=== PATIENT | female | born 2000 | race Caucasian/White ===

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

== ENCOUNTER 2019-02-14 15:29 | Emergency (ER) | payer OTHER ==
[2019-02-14 15:41] VITALS: BP 124/72
--- NOTE | 2019-02-14 16:15 | UC ---
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 - History of Current Complaint Chief Complaint: UCLowerExtremity Stated Complaint: R LEG INJURY Time Seen by Provider: 02/14/19 16:07 Hx Obtained From: Patient Hx Last Menstrual Period: iud Onset/Duration: Sudden Onset Severity Initially: Moderate Severity Currently: Moderate Pain Intensity: 7 Pain Scale Used: 0-10 Numeric Aggravating Factor(s): Standing, Ambulation Alleviating Factor(s): Rest, Elevation, Ice, OTC Meds Able to Bear Weight: No Legs: 1 - pain and swelling 2 - pain, no effusion - Allergies/Home Medications Allergies/Adverse Reactions: Allergies Allergy/AdvReac Type Severity Reaction Status Date / Time No Known Allergies Allergy Verified 02/14/19 15:41 PMH/Surg Hx/FS Hx/Imm Hx Previously Healthy: Yes Other History Of: Negative For: Anticoagulant Therapy - Surgical History Surgical History: Yes Surgery Procedure, Year, and Place: cholecystectomy, WISDOM TEETH - Family History Known Family History: Positive: Hypertension, Diabetes Negative: Cardiac Disease - Social History Alcohol Use: Rare Substance Use Type: Marijuana Substance Use Comment - Amount & Last Used: 2 times a month Smoking Status (MU): Never Smoked Tobacco Have You Smoked in the Last Year: No - Immunization History Most Recent Influenza Vaccination: 12/03 Vaccination Up to Date: Yes Review of Systems All Other Systems Reviewed And Are Negative: Yes Constitutional: Positive: Negative Skin: Positive: Negative Eyes: Positive: Negative ENT: Positive: Negative Respiratory: Positive: Negative Cardiovascular: Positive: Negative Gastrointestinal: Positive: Negative Genitourinary: Positive: Negative Motor: Positive: Negative Neurovascular: Positive: Negative Musculoskeletal: Positive: Arthralgia Neurological: Positive: Negative Psychological: Positive: Negative Physical Exam Triage Information Reviewed: Yes Appearance: Well-Appearing, No Pain Distress, Well-Nourished Vital Signs: Initial Vital Signs Temp 98.6 F 02/14/19 15:36 Pulse 87 02/14/19 15:36 Resp 18 02/14/19 15:36 BP 124/72 02/14/19 15:36 Pulse Ox 100 02/14/19 15:36 Vital Signs Reviewed: Yes Eyes: Positive: Conjunctiva Clear ENT: Positive: Hearing grossly normal. Negative: Nasal congestion, Nasal drainage, Tonsillar exudate, Trismus, Muffled voice, Hoarse voice Dental Exam: Normal Neck: Positive: Supple, Nontender Respiratory: Positive: Lungs clear, Normal breath sounds, No respiratory distress, No accessory muscle use Cardiovascular: Positive: RRR, No Murmur Bowel Sounds: Positive: Present Musculoskeletal: Positive: Other: - see image, gait not tested Neurological: Positive: Alert Psychological Exam: Normal Skin Exam: Normal - no broken skin or ecchymosis Diagnostics - Radiology No standard instances Radiology Interpretation Completed By: Radiologist Summary of Radiographic Findings: no fx right ankle or knee Lower Extremity Course/Dx - Differential Dx/Diagnosis Provider Diagnosis: Right ankle sprain, Right knee sprain Discharge - Sign-Out/Discharge Documenting (check all that apply): Patient Departure All imaging exams completed and their final reports reviewed: Yes - Discharge Plan Condition: Stable Disposition: HOME Patient Education Materials: Ankle Sprain (ED), Knee Sprain (ED), Crutch Instructions (ED), R.I.C.E. Treatment (ED) Forms: *Work Release Referrals: Greg Caldera NP [Primary Care Provider] - 1 Week (recheck in 1-2 weeks if not better) - Billing Disposition and Condition Condition: STABLE Disposition: Home
== END 2019-02-14 17:00 | disposition home or self-care (01) ==
LOC: UCEAST 15:29
DX: S93.401A Sprain of unspecified ligament of right ankle, initial encounter (principal); S83.91XA Sprain of unspecified site of right knee, initial encounter; W17.89XA Other fall from one level to another, initial encounter; Y92.9 Unspecified place or not applicable
CPT/HCPCS: 99213; G0463

== ENCOUNTER 2019-05-27 12:51 | Emergency (ER) | payer OTHER ==
--- OUTSIDE RECORDS SUMMARY | 2019-05-27 13:10 | XMS REPORT | Continuity of Care Document ---
:2000 External Reference #:[id number] Author Name Hue GusmanP.N.P Address [address] [facility] [address] [place] [address] Care Team Providers Name Role Phone Greg Caldera CPNP Care Team Information Ceo Na Unavailable Yoli Almanza M.D. - Sports Medicine Care Team Information Ceo Na [phone] Emmie Garber M.D. - Allergy & Care Team Information Ceo Na Immunology Problems Description No Active Problems Social History Type Date Description Comments Sex Unknown Tobacco Use Start: Unknown Patient has never smoked Smoking Status Reviewed: 04/13/19 Patient has never smoked Allergies, Adverse Reactions, Alerts Active Allergies Reaction Severity Comments Date NKDA 06/05/2008 [facility] 12/08/2018 Medications Active Medications SIG Qnty Indications Ordering Date Provider Epipen 2-Srinivasan inject intramuscularly 4units Z91.018 Greg 12/08/2018 as needed for Sharkness, 0.3mg/0.3ML anaphylactic reaction C.P.N.P Solution Auto-Inject Fexofenadine HCL 1 by mouth every day 30tabs J30.9 Greg 12/08/2018 as needed for Sharkness, 180mg Tablets allergies C.P.N.P Mometasone Furoate 2 sprays in each 17gm J30.9 Greg 12/08/2018 nostril daily Sharkness, 50mcg/Act C.P.N.P Suspension Zaditor 1 drop to each eye 10ml Greg 12/08/2018 0.025% twice daily as needed Sharkness, Solution for allergies C.P.N.P Hydroxyzine HCL 1 tablet by mouth 30tabs F41.9 Greg 10/24/2018 every 6 to 8 hours as Sharkness, 25mg Tablets needed for anxiety or C.P.N.P insomnia Vitamin D 1 by mouth once daily 30caps Greg 01/19/2018 (Cholecalciferol) Werner, C.P.N.P 1000Unit Capsules Mirena (52 MG) Unknown 20mcg/24HR IUD History Medications Cipro 1 po bid x 7 14tabs Alta Fernández, 04/03/2019 - 250mg Tablets days C.P.N.P. 04/10/2019 Cefdinir 1 capsule by 14caps N39.0 Greg Caldera, 03/22/2019 - 300mg Capsules mouth twice C.P.N.P 03/29/2019 daily for 7 days Escitalopram Oxalate 1 tablet by 30tabs F41.9 Greg Caldera, 2018 - mouth once daily C.P.N.P 04/13/2019 10mg Tablets Medications Administered in Office Medication SIG [...] CPT Code Status Date Vaccine Lot # [id number] Given 08/28/2018 Flu Inj Quadrivalent .5ml Preserve Free [id number] 33830 Given 04/28/2018 Meningococcal B Recombinant Protein And Outer [id number] Membrane [Bexsero] 24932 Given 03/23/2018 Meningococcal B Recombinant Protein And Outer [id number] Membrane [Bexsero] 40007 Given 08/24/2016 Flu Inj Quad 6mo+ VFC Only [] [id number] 72499 Given 12/26/2015 Meningococcal A,C,Y,W135 (Menactra) [id number] Preservative Free 70851 Given 06/18/2015 Flu Inj Quadrivalent .5ml Preserve Free [id number] 76648 Given 06/18/2015 Hepatitis A Vaccine Pediatric/Adolescent 2 [id number] Dose Schedule 87617 Given 02/06/2015 Td Vaccine [id number] 30946 Given 12/09/2014 Hepatitis A Vaccine Pediatric/Adolescent 2 [id number] Dose Schedule 01925 Given 09/12/2012 HPV 4 Gardasil 4 [id number] 60678 Given 09/12/2012 Flu Vacc Preserv Free Trivalent 3+yrs [id number] 37433 Given 07/08/2011 Flu Vacc Preserv Free Trivalent 3+yrs 42604 Given 07/08/2011 Flu Vacc Preserv Free Trivalent 3+yrs [id number] 55526 Given 07/08/2011 HPV 4 Gardasil 4 [id number] 84128 Given 06/29/2010 Meningococcal A,C,Y,W135 (Menactra) [id number] Preservative Free 36815 Given 06/29/2010 Flu Vacc Preserv Free Trivalent 3+yrs [id number] 85254 Given 06/29/2010 HPV 4 Gardasil 4 [id number] 28761 Given 06/12/2009 Flu Vacc Nasal Mist Trivalent (FluMist) [id number] 93377 Given 06/12/2009 TdaP Immunization Age 7+ [id number] 02683 Given 06/12/2009 Varicella (Chicken Pox) Immunization [id number] 46633 Given 06/13/2008 Flu Vacc Nasal Mist Trivalent (FluMist) [id number] 79736 Given 07/04/2007 Flu Vaccine Age 3+Years [id number] 81087 Given 05/08/2002 DTaP Immunization under age 7 55778 Given 11/30/2001 Hib/Hep B Combination Vaccine 43751 Given 11/30/2001 DTaP Immunization under age 7 78772 Given 11/30/2001 Pneumococcal 7valent - Prevnar 77833 Given 12/20/2000 Pneumococcal 7valent - Prevnar 68706 Given 07/18/2000 Pneumococcal 7valent - Prevnar 25389 Given 07/18/2000 MMR Virus Immunization 45131 Given 07/18/2000 Poliomyelitis Immunization 11842 Given 07/18/2000 Varicella (Chicken Pox) Immunization 86203 Given 1999 Hib/Hep B Combination Vaccine 88169 Given 1999 DTaP Immunization under age 7 58578 Given 1999 Hib/Hep B Combination Vaccine 38027 Given 1999 Poliomyelitis Immunization 48752 Given 1999 DTaP Immunization under age 7 65701 Given 1999 Hib/Hep B Combination Vaccine 32739 Given 1999 Poliomyelitis Immunization 44778 Given 1999 DTaP Immunization under age 6 Vital Signs Date Vital Result Comment 04/13/2019 9:31am Height 66.25 inches 5'6.25" Height Percentile 78 % Weight 220.00 lb Weight 99.792 kg Weight Percentile >97th Heart Rate 91 /min BP Systolic 119 mmHg BP Diastolic 84 mmHg BMI (Body Mass Index) 35.2 kg/m2 Body Mass Index Percentile 97 % Right ear audiology results 20 db Left ear audiology results 25 db Left Visual Acuity Distance 20/20 Right Visual Acuity Distance 20/20 03/22/2019 12:08pm Weight 220.00 lb Weight 99.792 kg Weight Percentile >97th Results Test Date Facility Test Result H/L Range Note Laboratory test 04/13/2019 In House Lab .Urine dip - <pending> finding (897)- - see nurse note .Urine Culture In House <pending> Laboratory test 04/02/2019 In House Lab .Urine Culture >100kcolonies P finding (607)- - In House Urine Culture And 04/02/2019 [facility] Urine Culture SEE RESULT BELOW 1, [address] [place] [address] [phone] Urine Culture And 03/23/2019 [facility] Urine Culture SEE RESULT BELOW [address] [place] [address] [phone] Laboratory test 03/22/2019 In House Lab .Urine Culture >100k positive finding (607)- - In House [facility] Allergy 12/08/2018 [facility] A pullulans IgE <0.35 kU/L [address] [place] [address] [phone] Aspergillus Fumigatus IgE <0.35 kU/L 5 Botrytis Allergen IgE <0.35 kU/L 6 Rajani albicans Allergen IgE <0.35 kU/L 7 Dermatophagoides pteronyssinus <0.35 kU/L 8 Epicoccum Allergen IgE <0.35 kU/L 9 Fusarium moniliforme Allergen <0.35 kU/L 10 Helminthosporium halodes IgE <0.35 kU/L 11 House Dust/Mendosa Allergen IgE <0.35 kU/L 12 House Dust/[place] Tj IgE <0.35 kU/L 13 Mucor racemosus Allergen IgE <0.35 kU/L 14 Penicillium notatum Allerg IgE <0.35 kU/L 15 Rhizopus nigricans Allerg IgE <0.35 kU/L 16 Stemphyllium IgE Allergen <0.35 kU/L 17 Trichophyton rubrum Allergen <0.35 kU/L 18 Ustilago nuda IgE Allergen <0.35 kU/L 19 Laboratory test 12/08/2018 [facility] [place] Feathers, <0.35 kU/ L [address] [place] [address] [phone] [facility] Allergy 12/08/2018 [facility] Bermuda Grass <0.35 kU/ L [address] [place] [address] [phone] Silver Birch IgE <0.35 kU/L 22 Wolsey Maple IgE <0.35 kU/L 23 Mountain [place] Allergen IgE <0.35 kU/L 24 Cocklebur Allergen IgE <0.35 kU/L 25 Perry Allergen IgE <0.35 kU/L 26 Dandelion Allergen IgE <0.35 kU/L 27 Elm Tree Allergen IgE <0.35 kU/L 28 Lithuanian Plantain Allergen IgE <0.35 kU/L 29 [place] Allergen IgE <0.35 kU/L 30 White Blackduck Tree Allerg IgE <0.35 kU/L 31 [place] Tree Allergen IgE <0.35 kU/L 32 Rough Pigweed Allergen IgE <0.35 kU/L 33 [place] Tree Allergen IgE <0.35 kU/L 34 Giant Ragweed Allergen IgE <0.35 kU/L 35 Snowflake Tree Allergen IgE <0.35 kU/L 36 Enloe Grass Allergen IgE <0.35 kU/L 37 Sheep Elkhorn Allergen IgE <0.35 kU/L 38 White Arsalan Allergen IgE <0.35 kU/L 39 Malaga Tree Allergen IgE <0.35 kU/L 40 Laboratory test 12/08/2018 [facility] Malt Allergen <0.35 kU/L [address] [place] [address] [phone] Rast Cow's Milk <0.35 kU/L 42 Rast Onion <0.35 kU/L 43 Rast Musselshell <0.35 kU/L 44 Rast Rice <0.35 kU/L 45 Rast Soybean <0.35 kU/L 46 Black/White Pepper IgE Allerg <0.35 kU/L 47 Rast Egg White <0.35 kU/L 48 Rast Chicken Feathers <0.35 kU/L 49 Duck Feathers, IgE <0.35 kU/L 50 Rast Chicken Meat <0.35 kU/L 51 Rast Chocolate <0.35 kU/L 52 Rast Coconut <0.35 kU/L 53 Rast Cockroach Allergen Ige <0.35 kU/L 54 Rast Casselberry <0.35 kU/L 55 Rast Cow Dander Ige <0.35 kU/L 56 Rast Egg <0.35 kU/L 57 Rast Garlic <0.35 kU/L 58 Rast Guinea Pig <0.35 kU/L 59 Horse Dander Allergen IgE <0.35 kU/L 60 Rast Tomatoe <0.35 kU/L 61 Rast Wheat <0.35 kU/L 62 Rast Yeast (De Guzman/Nguyễn) <0.35 kU/L 63 Goose Feathers Allergen IgE Ab <0.35 kU/L 64 Cell Morphology 12/08/2018 [facility] Microcytosis 2+ [address] [place] [address] [phone] Hypochromasia 1+ Comp Metabolic 12/08/2018 [facility] Sodium 138 mmol/L Normal 135-[address] [place] [address] [phone] Potassium 4.3 mmol/L Normal 3.5-5.0 Chloride 104 mmol/L Normal 101-111 Co2 Carbon Dioxide 26 mmol/L Normal 22-32 Anion Gap 8 mmol/L Normal 2-11 Glucose 89 mg/dL Normal 70-100 Blood Urea Nitrogen 10 mg/dL Normal 6-24 Creatinine 0.71 mg/dL Normal 0.51-0.95 BUN/Creatinine Ratio 14.1 Normal 8-20 Calcium 9.6 mg/dL Normal 8.6-10.3 Total Protein 7.1 g/dL Normal 6.4-8.9 Albumin 4.3 g/dL Normal 3.2-5.2 Globulin 2.8 g/dL Normal 2-4 Albumin/Globulin Ratio 1.5 Normal 1-3 Total Bilirubin 0.40 mg/dL Normal 0.2-1.0 Alkaline Phosphatase 103 U/L Normal 34-104 Alt 6 U/L Low 7-52 Ast 13 U/L Normal 13-39 Egfr Non- 106.0 >60 Egfr 128.3 >60 65 Laboratory 12/08/2018 [facility] Vitamin D Total 24.9 Normal 20-50 [address] 25(Oh) ng/[place] [address] [phone] Lipid Profile 12/08/2018 [facility] Triglycerides 133 mg/dL 67 (Trig/Chol/HDL DRIVE ) [place] [address] [phone] Cholesterol 158 mg/dL 68 HDL Cholesterol 43.5 mg/dL 69 LDL Cholesterol 88 mg/dL 70 Laboratory test 12/08/2018 [facility] Immunoglobulin E 3.9 kU/L <= 214 71 finding (Ige) [place] [address] [phone] Insulin Level 13.2 mcIU/mL Normal 2.0-16.0 CBC Auto 12/08/2018 [facility] White Blood 10.0 10^3/uL Normal 3.5-10.[address] [place] [address] [phone] Red Blood Count 5.30 10^6/uL High 3.70-4.87 Hemoglobin 12.1 g/dL Normal 12.0-16.0 Hematocrit 37 % Normal 33-41 Mean Corpuscular Volume 71 fL Low 80-97 Mean Corpuscular Hemoglobin 23 pg Low 27-31 Mean Corpuscular HGB Conc 32 g/dL Normal 31-36 Red Cell Distribution Width 18 % High 10.5-15 Platelet Count 294 10^3/uL Normal 150-450 Mean Platelet Volume 9.0 fL Normal 7.4-10.4 Abs Neutrophils 7.5 10^3/uL Normal 1.5-7.7 Abs Lymphocytes 1.5 10^3/uL Normal 1.0-4.8 Abs Monocytes 0.8 10^3/uL Normal 0-0.8 Abs Eosinophils 0.1 10^3/uL Normal 0-0.6 Abs Basophils 0.1 10^3/uL Normal 0-0.2 Abs Nucleated RBC 0 10^3/uL Granulocyte % 75.0 % Lymphocyte % 15.4 % Monocyte % 7.7 % Eosinophil % 1.3 % Basophil % 0.6 % Nucleated Red Blood Cells % 0 Laboratory test 12/08/2018 [facility] Rast Blueberry <0.35 kU/L [address] [place] [address] [phone] Rast Pineapple <0.35 kU/L 73 Rast Melon <0.35 kU/L 74 Rast Rainsburg Ige <0.35 kU/L 75 Rast Sharp <0.35 kU/L 76 Rast Northeast 12/08/2018 [facility] Alternaria tenuis <0.35 kU/ L [address] [place] [address] [phone] Cat Epithelium Allergen IgE <0.35 kU/L 78 Cladosporium herbarum IgE <0.35 kU/L 79 Dermatophagoides farinae IgE <0.35 kU/L 80 Dog Dander Allergen IgE <0.35 kU/L 81 Kentucky Blue (January) Grass IgE <0.35 kU/L 82 Contreras's Quarter Allergen IgE <0.35 kU/L 83 [place] Allergen IgE <0.35 kU/L 84 Common Ragweed () Allerge <0.35 kU/L 85 Frank Grass Allergen IgE <0.35 kU/L 86 1 [id number] 2 SEE RESULT BELOW Name: VIOLETA GERONIMO : [address]: Alta LIM Acct: [id number] Unit: [id number] AGE: 18 Location: [facility] Re04/02/19 SEX: F Status: REG REF SPEC: [id number] TIGIST: 04/02/19-[address] [facility] [address]: Alta LIM REQ: [id number] RECD: 04/03/19 STATUS: COMP _ SOURCE: URINE SPDESC: ORDERED: Urine Culture COMMENTS: [id number] QUERIES: Urine Source: Random Procedure Result Reported Site Urine Culture Final 04/04/19- 0857 ML Organism 1 STAPHYLOCOCCUS SAPROPHYTICUS [place] Count Not Performed on Uricult Specimens CFU/ML Routine sensitivity testing of urine isolates of S. saprophyticus is not advised, because infections respond to concentrations achieved in urine of antimicrobial agents commonly used to treat acute, uncomplicated urinary tract infections (e.g. nitrofurantoin, trimethoprim+/- sulfamethoxazole, or a fluoroquinolone). [facility] August 2001 * ML - [facility] . END OF REPORT DEPARTMENT OF PATHOLOGY, [address] [place] [address] Du Gardiner M.D. Director [facility] # [id number] 3 SEE RESULT BELOW Name: VIOLETA GERONIMO : [address]: Greg Caldera PERSONNEL PSYCHOLOGIST Acct: [id number] Unit: [id number] AGE: 18 Location: [facility] Re03/23/19 SEX: F Status: REG REF SPEC: [id number] TIGIST: 03/23/19-[address]: Greg Caldera PERSONNEL PSYCHOLOGIST REQ: [id number] RECD: 03/23/191610 STATUS: COMP _ SOURCE: URINE [facility]: ORDERED: Urine Culture COMMENTS: [id number] Urine Source: Random Procedure Result Reported Site Urine Culture Final 03/25/19- 1025 ML Organism 1 ESCHERICHIA COLI [place] Count Not Performed on Uricult Specimens CFU/ML 1. ESCHERICHIA COLI M.I.C. RX --------- ------ Ampicillin >=32 R Cefazolin 8 S Cefepime <=1 S Ceftriaxone <=1 S Ciprofloxacin <=0.25 S Gentamicin >=16 R Levofloxacin <=0.12 S Meropenem <=0.25 S Nitrofurantoin <=16 S Tetracycline >=16 R Pipercillin/Tazobactam <=4 S Trimethoprim/Sulfamethoxazole >=320 R Amoxicillin/Clavulanic Acid >=32 R Aztreonam <=1 S Contact the Microbiology Department for any additional antibiotic reporting. * ML - Main Lab . END OF REPORT DEPARTMENT OF PATHOLOGY, [address], [place], [place] [address] Du Gardiner M.D. Director [facility] # [id number] 4 Class 0 (Negative <0.35) 5 Class 0 (Negative <0.35) 6 Class 0 (Negative <0.35) 7 Class 0 (Negative <0.35) 8 Class 0 (Negative <0.35) 9 Class 0 (Negative <0.35) 10 Class 0 (Negative <0.35) 11 Class 0 (Negative <0.35) 12 Class 0 (Negative <0.35) 13 Class 0 (Negative <0.35) Test Performed by: [place] [address] 14 Class 0 (Negative <0.35) 15 Class 0 (Negative <0.35) 16 Class 0 (Negative <0.35) 17 Class 0 (Negative <0.35) 18 Class 0 (Negative <0.35) 19 Class 0 (Negative <0.35) ADDITIONAL INFORMATION This test was developed using an analyte specific reagent. Its performance characteristics were determined by [facility] in a manner consistent with CLIA requirements. This test has not been cleared or approved by the U.S. Food and Drug Administration. 20 Class 0 (Negative <0.35) Test Performed by: [place] [address] 21 Class 0 (Negative <0.35) 22 Class 0 (Negative <0.35) 23 Class 0 (Negative <0.35) 24 Class 0 (Negative <0.35) 25 Class 0 (Negative <0.35) 26 Class 0 (Negative <0.35) 27 Class 0 (Negative <0.35) 28 Class 0 (Negative <0.35) 29 Class 0 (Negative <0.35) 30 Class 0 (Negative <0.35) 31 Class 0 (Negative <0.35) 32 Class 0 (Negative <0.35) 33 Class 0 (Negative <0.35) 34 Class 0 (Negative <0.35) 35 Class 0 (Negative <0.35) 36 Class 0 (Negative <0.35) Test Performed by: [facility] [employer] [facility] [place] [address] 37 Class 0 (Negative <0.35) 38 Class 0 (Negative <0.35) 39 Class 0 (Negative <0.35) 40 Class 0 (Negative <0.35) 41 Class 0 (Negative <0.35) Test Performed by: [facility] [employer] [address] [place] [address] 42 Class 0 (Negative <0.35) Test Performed by: [facility] [employer] [facility] [place] [address] 43 Class 0 (Negative <0.35) Test Performed by: [facility] [employer] [address] [place] [address] 44 Class 0 (Negative <0.35) Test Performed by: [facility] [employer] [address] [place] [address] 45 Class 0 (Negative <0.35) Test Performed by: [place] [address] 46 Class 0 (Negative <0.35) Test Performed by: [facility] [employer] [address] [place] [address] 47 Class 0 (Negative <0.35) Test Performed by: [facility] [employer] [address] [place] [address] 48 Class 0 (Negative <0.35) Test Performed by: [place] [address] 49 Class 0 (Negative <0.35) Test Performed by: [facility] [place] [address] 50 Class 0 (Negative <0.35) Test Performed by: [facility] [employer] [facility] [place] [address] 51 Class 0 (Negative <0.35) Test Performed by: [facility] [employer] [address] [place] [address] 52 Class 0 (Negative <0.35) Test Performed by: [facility] [place] [address] 53 Class 0 (Negative <0.35) Test Performed by: [facility] [employer] [address] [place] [address] 54 Class 0 (Negative <0.35) Test Performed by: [place] [address] 55 Class 0 (Negative <0.35) Test Performed by: [place] [address] 56 Class 0 (Negative <0.35) Test Performed by: [place] [address] 57 Class 0 (Negative <0.35) Test Performed by: [place] [address] 58 Class 0 (Negative <0.35) Test Performed by: [place] [address] 59 Class 0 (Negative <0.35) Test Performed by: [place] [address] 60 Class 0 (Negative <0.35) Test Performed by: [address] [address] 61 Class 0 (Negative <0.35) Test Performed by: [place] [address] 62 Class 0 (Negative <0.35) Test Performed by: [place] [address] 63 Class 0 (Negative <0.35) Test Performed by: [place] [address] 64 Class 0 (Negative <0.35) Test Performed by: [address] [address] 65 Because ethnic data is not always readily [...] 15-29 5 Kidney failure <15 (or dialysis) 66 Total 25-Hydroxyvitamin D2 and D3 (25-OH-VitD) <10 ng/mL (severe deficiency) 10-19 ng/mL (mild to moderate deficiency) 20-50 ng/mL (optimum levels) 51-80 ng/mL (increased risk of hypercalciuria) >80 ng/mL (toxicity possible) 67 Desirable: <150 Borderline High: 150-199 High: 200-499 Very High: >500 68 Desirable: <200 Borderline High: 200-239 High: >239 69 Low: <40 Desirable: 40-60 High: >60 70 Desirable: <100 Near Optimal: 100-129 Borderline High: 130-159 High: 160-189 Very High: >189 71 Test Performed by: [facility] [place] [address] 72 Class 0 (Negative <0.35) ADDITIONAL INFORMATION This test was developed using an analyte specific reagent. Its performance characteristics were determined by [facility] in a manner consistent with CLIA requirements. This test has not been cleared or approved by the U.S. Food and Drug Administration. Test Performed by: [place] [address] 73 Class 0 (Negative <0.35) Test Performed by: [place] [address] 74 Class 0 (Negative <0.35) Test Performed by: [place] [address] 75 Class 0 (Negative <0.35) Test Performed by: [place] [address] 76 Class 0 (Negative <0.35) Test Performed by: [place] [address] 77 Class 0 (Negative <0.35) 78 Class 0 (Negative <0.35) 79 Class 0 (Negative <0.35) 80 Class 0 (Negative <0.35) CORRECTED REPORT --- Corrected on 12/12/18 1522 --- D farinae IgE previously reported as: <0.35 kU/L Class 0 (Negative <0.35) Test Performed by: [facility] [address] [place] [address] 81 Class 0 (Negative <0.35) 82 Class 0 (Negative <0.35) 83 Class 0 (Negative <0.35) 84 Class 0 (Negative <0.35) 85 Class 0 (Negative <0.35) 86 Class 0 (Negative <0.35) Procedures Description No Information Available Medical Devices Description No Information Available Encounters Type Date Location Provider Dx Diagnosis Office Visit 03/22/2019 [facility] Greg Caldera, N39.0 Urinary tract 12:15p C.P.N.P infection, site not specified Office Visit 12/08/2018 [facility] Greg Caldera, T78.40xA Allergy, 9:00a C.P.N.P unspecified, initial encounter J30.9 Allergic rhinitis, unspecified E88.81 Metabolic syndrome F41.9 Anxiety disorder, unspecified Z91.018 Allergy to other foods Office Visit 10/24/2018 8:15a [facility] Greg Caldera, F41.9 Anxiety disorder, C.P.N.P unspecified Assessments Date Code Description Provider 04/13/2019 Z00.00 Encounter for general adult medical Greg Caldera, C.P.N.P examination without abnormal findings 04/13/2019 F41.9 Anxiety disorder, unspecified Greg Caldera, C.P.N.P 04/13/2019 J30.9 Allergic rhinitis, unspecified Greg Caldera, C.P.N.P 04/13/2019 Z91.018 Allergy to other foods Greg Caldera, C.P.N.P 04/02/2019 N39.0 Urinary tract infection, site not Alta Fernández C.P.N.P. specified 03/22/2019 N39.0 Urinary tract infection, site not Greg Caldera, C.P.N.P specified 12/08/2018 T78.40xA Allergy, unspecified, initial encounter Greg Caldera , C.P.N.P 12/08/2018 J30.9 Allergic rhinitis, unspecified Greg Laguerreness, C.P.N.P 12/08/2018 E88.81 Metabolic syndrome Greg Caldera, C.P.N.P 12/08/2018 F41.9 Anxiety disorder, unspecified Greg Caldera, C.P.N.P 12/08/2018 Z91.018 Allergy to other foods Greg Caldera, C.P.N.P 10/24/2018 F41.9 Anxiety disorder, unspecified Greg Caldera, C.P.N.P Plan of Treatment 04/13/2019 - Greg Laguerrenatalia, C.P.N.PZ00.00 Encounter for general adult medical examination without abnormal findingsFollow up:In 1 year for next well gvwwlS18.9 Anxiety disorder, unspecifiedFollow up:As arrmzsG99.9 Allergic rhinitis, wpludxuceoaB63.018 Allergy to other foods Goals 04/13/2019 - Greg Laguerrenatalia, C.P.N.PZ00.00 Encounter for general adult medical examination without abnormal findings*5 servings of fruits/vegetables daily *Adequate vitamin D - 3 servings of fortified dairy daily or add a supplement *Outdoor time or exercise most days Functional Status Description No Information Available Mental Status Description No Information Available Referrals Refer to Reason for Referral Status Appt Date Emmie Garber M.D. seasonal allergies and possible allergy to Sent 03/30 [facility] [address] [place] [id number] [phone]
[2019-05-27 13:25] VITALS: BP 118/69
--- NOTE | 2019-05-27 13:53 | UC ---
Throat Pain/Nasal Neo HPI - HPI Summary HPI Summary: 18-year-old female presents with 4 day history of nasal congestion, sinus pressure, right ear pain, and a dry nonproductive cough. States she had some sore throat at the onset of symptoms but has since resolved. Denies fever, chills, dysphagia, chest pain, shortness of breath, abdominal pain, nausea, or vomiting. - History of Current Complaint Chief Complaint: UCGeneralIllness Stated Complaint: CONGESTED Time Seen by Provider: 05/27/19 13:27 Hx Obtained From: Patient Hx Last Menstrual Period: IUD Pain Intensity: 5 - Allergies/Home Medications Allergies/Adverse Reactions: Allergies Allergy/AdvReac Type Severity Reaction Status Date / Time No Known Allergies Allergy Verified 05/27/19 13:25 Home Medications: Home Medications NK [No Home Medications Reported] 05/27/19 [History Confirmed 05/27/19] PMH/Surg Hx/FS Hx/Imm Hx Previously Healthy: Yes - Denies significant PMH Other History Of: Negative For: Anticoagulant Therapy - Surgical History Surgical History: Yes Surgery Procedure, Year, and Place: cholecystectomy, WISDOM TEETH - Family History Known Family History: Positive: Hypertension, Diabetes - Social History Occupation: Student Lives: Dormitory/Roommates Alcohol Use: Rare Substance Use Type: Marijuana Substance Use Comment - Amount & Last Used: 2 times a month Smoking Status (MU): Never Smoked Tobacco Have You Smoked in the Last Year: No - Immunization History Most Recent Influenza Vaccination: 12/03 Vaccination Up to Date: Yes Review of Systems All Other Systems Reviewed And Are Negative: Yes Constitutional: Negative: Fever, Chills Skin: Negative: Rash Eyes: Negative: Drainage, Eye Redness ENT: Positive: Sore Throat, Ear Ache, Nasal Discharge, Sinus Congestion, Sinus Pain/Tenderness Respiratory: Positive: Cough. Negative: Shortness Of Breath Cardiovascular: Negative: Palpitations, Chest Pain Gastrointestinal: Negative: Abdominal Pain, Vomiting, Nausea Genitourinary: Positive: Negative Musculoskeletal: Positive: Negative Neurological: Positive: Negative Is Patient Immunocompromised?: No Physical Exam - Summary Physical Exam Summary: GENERAL APPEARANCE: Well developed, well nourished, alert and cooperative, and appears to be in no acute distress. EYES: Conjunctiva clear. No drainage. EARS: External auditory canals and tympanic membranes clear, hearing grossly intact. NOSE: Moderate nasal congestion. No nasal discharge. THROAT: Mild pharyngeal erythema with post-nasal drip. No tonsilar inflammation , swelling, exudate, or lesions. Uvula midline. NECK: Neck supple, non-tender without lymphadenopathy. CARDIAC: Normal S1 and S2. No S3, S4 or murmurs. Rhythm is regular. There is no peripheral edema, cyanosis or pallor. Extremities are warm and well perfused. Capillary refill is less than 2 seconds. Peripheral pulses intact. LUNGS: Clear to auscultation without rales, rhonchi, wheezing or diminished breath sounds. Dry non-productive cough. ABDOMEN: Positive bowel sounds. Soft, nondistended, nontender. No guarding or rebound. No masses or hepatosplenomegally. MUSKULOSKELETAL: ROM intact to all extremities. No joint erythema or tenderness. Normal muscular development. Normal gait. SKIN: Skin normal color, texture and turgor with no lesions or eruptions. Triage Information Reviewed: Yes Vital Signs: Initial Vital Signs Temp 97.5 F 05/27/19 13:21 Pulse 78 05/27/19 13:21 Resp 18 05/27/19 13:21 BP 118/69 05/27/19 13:21 Pulse Ox 100 05/27/19 13:21 Vital Signs Reviewed: Yes Throat Pain/Nasal Course/Dx - Course Course Of Treatment: 18-year-old female presents with 4 day history of nasal congestion, sinus pressure, right ear pain, and a dry nonproductive cough. States she had some sore throat at the onset of symptoms but has since resolved. Denies fever, chills, dysphagia, chest pain, shortness of breath, abdominal pain, nausea, or vomiting. Afebrile. Vital signs stable. Patient and moderate nasal congestion , mild pharyngeal erythema with postnasal drip, no tonsillar swelling or exudate , no cervical lymphadenopathy, clear bilateral breath sounds, dry nonproductive cough, and otherwise unremarkable exam. Recommending symptomatic treatment for a viral upper respiratory infection. She is to follow-up with her primary care provider in 5-7 days if symptoms are not improving. Anticipatory guidance and warning signs are reviewed with the patient. Verbalizes understanding and agrees with plan of care. - Differential Dx/Diagnosis Differential Diagnosis/HQI/PQRI: Influenza, Pharyngitis, Sinusitis, Tonsillitis , URI Provider Diagnosis: Viral upper respiratory infection Discharge ED - Sign-Out/Discharge Documenting (check all that apply): Patient Departure All imaging exams completed and their final reports reviewed: No Studies - Discharge Plan Condition: Stable Disposition: HOME Patient Education Materials: Upper Respiratory Infection (ED) Referrals: Greg Caldera, YOUTH MINISTRY DIRECTOR [Primary Care Provider] - 5 Days Additional Instructions: Your history and exam are consistent with a viral upper respiratory infection. Viral infections do not respond to antibiotics and are limited to the treatment of symptoms. Viral infections typically run their course in 7-10 days. Drink plenty of fluids to avoid dehydration especially if you are running any fever. Use a saline rinse kit such as Neti Pot or NeilMed at least twice a day to help thin secretions and promote drainage of the sinuses. Use fluticasone (Flonase) nasal spray 2 sprays each nostril once daily. Use an over the counter decongestant such as Sudafed according to directions to help with the congestion. Take over the counter acetaminophen (Tylenol) or ibuprofen (Advil, Motrin) according to directions as needed for pain or fever. Use salt water gargles several times a day if you have a sore throat. You may also use Chloraseptic spray or Cepacol lonzenges according to directions which contain a numbing medication and can provide some temporary relief from your sore throat. Follow up with your primary care provider in 5-7 days if symptoms persist. Seek immediate medical attention in the emergency room if you have fever greater than 100.5 F despite taking acetaminophen or ibuprofen, have chest pain , difficulty breathing, are unable to swallow, or have any worsening of symptoms. - Billing Disposition and Condition Condition: STABLE Disposition: Home
== END 2019-05-27 14:09 | disposition home or self-care (01) ==
LOC: UCEAST 12:51
DX: J06.9 Acute upper respiratory infection, unspecified (principal); H92.01 Otalgia, right ear
CPT/HCPCS: 99211; G0463

== ENCOUNTER 2019-06-05 18:37 | Emergency (ER) | payer OTHER ==
[2019-06-05 19:02] VITALS: BP 127/72
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
== END 2019-06-05 19:30 | disposition home or self-care (01) ==
LOC: UCCORT 18:37
DX: S40.011A Contusion of right shoulder, initial encounter (principal); X58.XXXA Exposure to other specified factors, initial encounter; Y92.9 Unspecified place or not applicable
CPT/HCPCS: 99211; G0463

== ENCOUNTER 2019-06-19 11:49 | Emergency (ER) | payer OTHER ==
[2019-06-19 12:25] VITALS: BP 131/78
--- NOTE | 2019-06-19 12:36 | UC ---
Throat Pain/Nasal Neo HPI - HPI Summary HPI Summary: Patient is a 19-year-old female presenting with nasal congestion, sore throat, productive cough, shortness of breath on exertion, body aches, and fatigue 3 days. Notes intermittent wheezing and constant feeling of chest tightness. Denies ear pain and sinus tenderness. Denies nausea, vomiting, diarrhea, abdominal pain. Patient denies fever and chills. Patient states she has taken Mucinex for symptom relief. Patient has history of exercise-induced asthma. - History of Current Complaint Stated Complaint: CONGESTION SORE THROAT Hx Obtained From: Patient Hx Last Menstrual Period: IUD Onset/Duration: Gradual Onset, Lasting Days Pain Intensity: 7 Pain Scale Used: 0-10 Numeric - Allergies/Home Medications Allergies/Adverse Reactions: Allergies Allergy/AdvReac Type Severity Reaction Status Date / Time No Known Allergies Allergy Verified 06/19/19 12:17 PMH/Surg Hx/FS Hx/Imm Hx Previously Healthy: Yes Other History Of: Negative For: Anticoagulant Therapy - Surgical History Surgical History: Yes Surgery Procedure, Year, and Place: cholecystectomy, WISDOM TEETH - Family History Known Family History: Positive: Hypertension, Diabetes - Social History Alcohol Use: Rare Substance Use Type: Marijuana Substance Use Comment - Amount & Last Used: 2 times a month Smoking Status (MU): Never Smoked Tobacco Have You Smoked in the Last Year: No - Immunization History Most Recent Influenza Vaccination: 12/03 Vaccination Up to Date: Yes Review of Systems All Other Systems Reviewed And Are Negative: Yes Constitutional: Positive: Negative. Negative: Fever, Chills, Fatigue ENT: Positive: Sore Throat, Sinus Congestion. Negative: Ear Ache, Nasal Discharge, Sinus Pain/Tenderness Respiratory: Positive: Shortness Of Breath, Cough Cardiovascular: Positive: Negative. Negative: Palpitations, Chest Pain Gastrointestinal: Positive: Negative. Negative: Abdominal Pain, Vomiting, Diarrhea, Nausea Musculoskeletal: Positive: Myalgia Neurological: Positive: Headache Physical Exam Triage Information Reviewed: Yes Appearance: Well-Appearing, No Pain Distress, Well-Nourished Vital Signs: Initial Vital Signs Temp 97.9 F 06/19/19 12:18 Pulse 82 06/19/19 12:18 Resp 20 06/19/19 12:18 BP 131/78 06/19/19 12:18 Pulse Ox 100 06/19/19 12:18 Lab Results 10/29/19 Range/Units 12:49 Group A Strep Rapid Negative (Negative) Vital Signs Reviewed: Yes Eyes: Positive: Conjunctiva Clear ENT: Positive: Hearing grossly normal, Pharyngeal erythema, Nasal congestion, Nasal drainage - PND, TMs normal, Tonsillar swelling, Uvula midline. Negative: Tonsillar exudate, Sinus tenderness Neck: Positive: Supple, Tenderness @ - Left anterior cervical node, Enlarged Nodes @ - Left anterior cervical node Respiratory Exam: Normal Respiratory: Positive: Lungs clear, Normal breath sounds, No respiratory distress. Negative: Crackles, Rhonchi, Stridor, Wheezing Cardiovascular Exam: Normal Cardiovascular: Positive: RRR. Negative: Tachycardia Neurological: Positive: Alert Psychological: Positive: Age Appropriate Behavior Throat Pain/Nasal Course/Dx - Course Course Of Treatment: Educated patient on URI symptoms and acute bronchitis. Instructed to continue with symptomatic treatment including use of albuterol inhaler for shortness breath and wheezing. Instructed to follow up with PCP if symptoms persist or go to ED if symptoms worsen. Patient's vital signs normal and in no respiratory distress. Patient voiced understanding and agreed with the treatment plan. - Differential Dx/Diagnosis Provider Diagnosis: Upper respiratory infection, acute, Acute bronchitis Discharge ED - Sign-Out/Discharge Documenting (check all that apply): Patient Departure All imaging exams completed and their final reports reviewed: No Studies - Discharge Plan Condition: Stable Disposition: HOME Prescriptions: Albuterol HFA INHALER* [Ventolin HFA Inhaler*] 1 - 2 puff INH Q6H PRN #1 mdi PRN Reason: Sob/Wheezing Patient Education Materials: Acute Bronchitis (ED) Forms: *School Release Referrals: Greg Caldera, WOOD MODEL MAKER [Primary Care Provider] - If Needed Additional Instructions: As discussed, your symptoms are most likely caused by a virus. You may continue to take mucinex as directed to help reduce your mucus production. Use the albuterol inhaler as prescribed for your shortness of breath. You may use your over the counter nasal spray as directed for symptomatic relief. You may take ibuprofen as directed for pain relief. Get plenty of rest and fluids. Follow up with your primary care doctor or the [facility] listed below if your symptoms worsen or do not resolve within 7 days. - Billing Disposition and Condition Condition: STABLE Disposition: Home - Attestation Statements Provider Attestation: I was available for consult. This patient was seen by the ANNA. The patient was not presented to, seen by, or examined by me. -Tito
== END 2019-06-19 13:18 | disposition home or self-care (01) ==
LOC: UCCORT 11:49
DX: J06.9 Acute upper respiratory infection, unspecified (principal); J20.9 Acute bronchitis, unspecified
CPT/HCPCS: 87651; 99212; G0463

== ENCOUNTER 2019-06-25 12:58 | Emergency (ER) | payer OTHER ==
[2019-06-25 13:15] VITALS: BP 120/62
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
== END 2019-06-25 14:22 | disposition home or self-care (01) ==
LOC: UCCORT 12:58
DX: S60.211A Contusion of right wrist, initial encounter (principal); S63.501A Unspecified sprain of right wrist, initial encounter; W22.09XA Striking against other stationary object, initial encounter; Y92.008 Other place in unspecified non-institutional (private) residence as the place of occurrence of the external cause
CPT/HCPCS: 99212; G0463